=== PATIENT | female | born 1985 | race Caucasian/White ===

== ENCOUNTER 2016-07-26 17:33 | Emergency (ER) | payer OTHER ==
--- NOTE | 2016-07-26 18:03 | ED Physician Documentation ---
General Adult - HISTORIAN Historian: patient - HPI Stated Complaint: Left Axillary Abscess Chief Complaint: General Adult Additional Information: Axillary abscess for a week. More painful today in spite of warm compresses. Abscess in this same location 2-3 times in the past. Multiple abscesses other locations. - ROS CONST: no problems - PAST HX Past History: none Surgeries/Procedures: cholecystectomy Allergies/Adverse Reactions: Allergies Allergy/AdvReac Type Severity Reaction Status Date / Time No Known Allergies Allergy Verified 07/26/16 17:44 Home Medications: Ambulatory Orders Medication Instructions Recorded Sulfamethoxazole/Trimethoprim 2 each PO BID #40 tab 07/26/16 [Bactrim Ds] - SOCIAL HX Smoking History: non-smoker - FAMILY HX Family History: No - VITAL SIGNS Vital Signs: Vital Signs Temp Pulse Resp BP Pulse Ox 97.7 F 100 H 18 122/90 98 07/26/16 17:35 07/26/16 17:35 07/26/16 17:35 07/26/16 17:35 07/26/16 17:35 - REVIEWED ASSESSMENTS Nursing Assessment Reviewed: Yes Vitals Reviewed: Yes Progress - Progress Progress: left axilla prepped with chlorhexadine, alcohol. Area aspirated w/ 18 g needle, with return two ml yellow opaque fluid. Sent for C&S. ED Results Lab/Radiology - Orders Orders: ED Orders Category Date Time Status BODY FLUID CULTURE Stat Lab 07/26/16 17:56 Ordered General Adult Physical Exam - PHYSICAL EXAM GENERAL APPEARANCE: mild distress EENT: eye inspection normal, ENT inspection normal NECK: normal inspection, supple RESPIRATORY: no resp distress RECTAL: deferred BACK: normal inspection SKIN: warm/dry, normal color (except left axilla with multiple superficial excoriations ove rhair follicles, two areas with a firm nodule each, 1-1.5 cm. Minimal fluctuance detected. ) EXTREMITIES: normal range of motion (gait), no evidence of injury NEURO: CN's nml as tested, motor nml, sensation nml Discharge Clincal Impression: Cutaneous abscess of axilla Qualifiers: Laterality: left Qualified Code(s): L02.412 - Cutaneous abscess of left axilla Prescriptions: Sulfamethoxazole/Trimethoprim [Bactrim Ds] 2 each PO BID #40 tab Home Medications: Ambulatory Orders Sulfamethoxazole/Trimethoprim [Bactrim Ds] 2 each PO BID #40 tab 07/26/16 Condition: Good Disposition: 01 HOME, SELF-CARE Decision to Admit: NO Decision Time: 18:03
[2016-07-26 18:18] VITALS: BP 118/68
== END 2016-07-26 18:04 | disposition home or self-care (01) ==
LOC: ED 17:33
DX: L02.412 Cutaneous abscess of left axilla (principal)
CPT/HCPCS: 10160; 87070; 99283

== ENCOUNTER 2016-10-21 10:27 | Outpatient (CLI) | payer OTHER | END 2016-10-21 10:30 | LOC: LAB 10:27 | PROVIDERS: ATTEND Family Medicine | DX: R20.2 Paresthesia of skin (principal) | CPT/HCPCS: 36415; 84436; 84443 ==